=== PATIENT | male | born 1980 | race Caucasian/White ===

== ENCOUNTER → 2017-03-31 | Outpatient (CLI) | payer BC ==
--- NOTE | 2017-03-31 10:06 | US ---
EXAMINATION TYPE: US abdomen complete DATE OF EXAM: 03/31/2017 COMPARISON: NONE CLINICAL HISTORY: 36-year-old male R10.11 Right upper quadrant, epigastric, and RLQ pain. 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 Liver Length: 13.9 cm Gallbladder Wall: 0.2 cm CBD: 0.3 cm Spleen: 9.7 cm Right Kidney: 10.5 x 4.8 x 4.5 cm Left Kidney: 10.8 x 5.4 x 4.8 cm Pancreas: Tail obscured by overlying bowel gas Liver: Homogeneous echotexture without focal lesion. Gallbladder: wnl Evidence for sonographic Salter's sign: No CBD: wnl as visualized, distal portion obscured by bowel gas Spleen: wnl Right Kidney: No hydronephrosis. Left Kidney: No hydronephrosis. Upper IVC: limited visualization. Abd Aorta: wnl IMPRESSION: Allowing for some limitations due to bowel gas, unremarkable sonographic examination of the abdomen.
== END | disposition home or self-care (01) ==
LOC: RADUSWWP 08:11
PROVIDERS: ATTEND Family Medicine
DX: R10.11 Right upper quadrant pain (principal)
CPT/HCPCS: 76700

== ENCOUNTER → 2017-07-13 | Outpatient (CLI) | payer BC ==
--- NOTE | 2017-07-13 09:09 | US ---
EXAMINATION TYPE: US gallbladder DATE OF EXAM: 07/13/2017 COMPARISON: NONE CLINICAL HISTORY: R10.11 RUQ Abdominal Pain; RUQ pain after meals and with activity; herniated discs thoracic and lumbar level EXAM MEASUREMENTS: Liver Length: 10.1 cm Gallbladder Wall: 0.1 cm CBD: 0.3 cm Right Kidney: 11.0 x 5.8 x 5.6 cm Pancreas: wnl in its visualized portions, tail not well seen Liver: wnl Gallbladder: wnl Evidence for sonographic Salter's sign: No CBD: wnl Right Kidney: No hydronephrosis or masses seen There is no ascites. Cortical medullary differentiation maintained. IMPRESSION: No significant abnormalities evident
== END | disposition home or self-care (01) ==
LOC: RADUSWWP 07:47
DX: R10.11 Right upper quadrant pain (principal)
CPT/HCPCS: 76705

== ENCOUNTER → 2017-08-04 | Outpatient (CLI) | payer BC ==
--- NOTE | 2017-08-04 13:46 | NM ---
EXAMINATION TYPE: NM hepatobiliary w EF DATE OF EXAM: 08/04/2017 COMPARISON: Previous hepatobiliary scan dated 04/07/2017, ultrasound 07/13/2017 HISTORY: Right upper quadrant pain TECHNIQUE: After the intravenous administration of 5.3 mCi Tc 99m Mebrofenin hepatobiliary scintigrap hy is performed. Immediate images post injection. FINDINGS: There is satisfactory initial accumulation of tracer by the liver. The gallbladder is visualized wit hin 12 minutes. The small bowel activity is noted within 14 minutes. At one hour 8 ounces of oral e nsure plus is given to mimic CCK and gallbladder ejection fraction is calculated at 22 %, abnormal lo w. Therefore there is no scintigraphic evidence of cystic or common bile duct obstruction to suggest acute cholecystitis. IMPRESSION: Abnormal low gallbladder ejection fraction
== END | disposition home or self-care (01) ==
LOC: RADNMMAIN 07:08
DX: R93.2 Abnormal findings on diagnostic imaging of liver and biliary tract (principal)
CPT/HCPCS: 78226; A9537

== ENCOUNTER 2017-09-27 07:34 | Day surgery (SDC) | payer BC ==
[2017-09-25 10:38] VITALS: BMI 24.1
[~2017-09-27 07:34] MED LIST: DEXAMETHASONE SOD PHOSPHATE 10 MG/ML 1 ML VIAL IV ONE; HEPARIN SODIUM,PORCINE 5,000 UNIT/ML 1 ML VIAL SQ ONE; LACTATED RINGERS 1,000 ML IV SCH; LIDOCAINE 1% 20 ML VIAL (10MG/ML) FOR IV START INTRADERMA PRN; ONDANSETRON 4 MG/2 ML VIAL IVP ONE; ceFAZolin IN SWFI 2 GM/20 ML SYRINGE IVP ONE
[2017-09-27] MEDS ORDERED: LACTATED RINGERS 1,000 ML IV ONE ×2 (07:58→09:58)
[2017-09-27] MEDS ORDERED: SUCCINYLCHOLINE CHLORIDE 100 MG/5 ML SYR IV ONE (09:27)
[2017-09-27] MEDS ORDERED: KETOROLAC 30 MG/ML 1 ML VIAL ONE (09:27)
[2017-09-27] MEDS ORDERED: MIDAZOLAM 2 MG/2 ML VIAL ONE (09:27)
[2017-09-27] MEDS ORDERED: ROCURONIUM BROMIDE 10 MG/ML 10 ML VIAL IV ONE (09:27)
[2017-09-27] MEDS ORDERED: fentaNYL (PF) 50 MCG/ML 2 ML AMP ONE (09:27)
[2017-09-27] MEDS ORDERED: NEOSTIGMINE 1 MG/ML 10 ML VIAL ONE (09:27)
[2017-09-27] MEDS ORDERED: PROPOFOL 10 MG/ML 20 ML VIAL IV ONE (09:27)
[2017-09-27] MEDS ORDERED: GLYCOPYRROLATE 0.2 MG/ML 2 ML VIAL ONE (09:27)
[2017-09-27] MEDS ORDERED: LIDOCAINE 1% INJ 10MG/ML (20 ML MDV) ONE (09:27)
[2017-09-27] MEDS ORDERED: ROPIVACAINE 5 MG/ML 30 ML VIAL MISCELLANE ONE (09:45)
[2017-09-27] MEDS ORDERED: NALOXONE 0.4 MG/ML 1 ML VIAL IV PRN (10:22)
[2017-09-27] MEDS ORDERED: HYDROcodone/APAP 5-325MG 1 EACH TAB PO PRN (10:22)
--- NOTE | 2017-09-27 10:24 | P.OP ---
Date of Procedure: 09/27/17 Procedure(s) Performed: PREOPERATIVE DIAGNOSIS: Biliary dyskinesia POSTOPERATIVE DIAGNOSIS: Same PROCEDURE: Laparoscopic cholecystectomy SURGEON: Ly EBL: Minimal see anesthesia record ANESTHESIA: Gen. COMPLICATIONS: None OPERATIVE PROCEDURE: The patient was brought and placed on the operating room table in the supine position. The patient was placed under general anesthesia at that time. The abdomen was prepped and draped in the usual sterile fashion. A small vertical infraumbilical incision was made. The fascia was grasped with the Rosie forceps. The fascia was retracted anteriorly. The Veress needle was advanced into the peritoneal cavity. The saline drop test was normal. Insufflation took place up to 15 mmHg. A 5 mm optical trocar was advanced and the peritoneal cavity. 2 additional 5 mm trochars were placed in the right upper quadrant under direct visualization. A 10 mm trocar was advanced into the epigastric incision site. The gallbladder was retracted superiorly and laterally. The peritoneum overlying the infundibulum was bluntly dissected. The patient's cystic duct was visualized. The junction between the cystic duct common and hepatic duct was identified. The cystic duct was then divided after placement of 3 10 mm clips on the patient's side and one on the specimen side. The cystic artery was identified and clipped as well. A small vessel was seen along the gallbladder fossa and clipped as well. The gallbladder was then removed from the liver bed using electrocautery. The gallbladder was then removed from the epigastric trocar site with an Endo Catch bag. The gallbladder fossa was irrigated with saline. There was no evidence of any bleeding or biliary drainage seen. The trochars were then removed. The fascia at the 10 millimeter site was closed using a Candelario- Oliver 0 Vicryl stitch. The skin at all 4 sites was closed using a 4-0 Monocryl stitch. At the end of this procedure the sponge and needle counts were correct. DISPOSITION: Stable to the recovery room
[2017-09-27 10:27] VITALS: TEMP 97.8
[2017-09-27] MEDS ORDERED: HYDROmorphone 0.5 MG/0.5 ML SYRINGE IVP ONE ×2 (10:40→10:45)
[2017-09-27] MEDS: fentaNYL (PF) 50 MCG/ML 2 ML AMP IV PRN ×2 (10:51→10:57)
[2017-09-27] MEDS ORDERED: MEPERIDINE 50 MG/ML SYRINGE IVP ONE (11:05)
[2017-09-27] MEDS ORDERED: HYDROcodone/APAP 5-325MG 1 EACH TAB PO ONE (11:35)
[2017-09-27 11:37] VITALS: RESP 18
[2017-09-27 12:52] VITALS: BP 114/68; PULSE 68
== END 2017-09-27 12:59 | disposition home or self-care (01) ==
LOC: OR 07:34
PROVIDERS: ATTEND Surgery
DX: K81.1 Chronic cholecystitis (principal); K82.8 Other specified diseases of gallbladder; K21.9 Gastro-esophageal reflux disease without esophagitis; Z79.891 Long term (current) use of opiate analgesic; Z79.899 Other long term (current) drug therapy; Z88.1 Allergy status to other antibiotic agents; Z88.2 Allergy status to sulfonamides; Z88.8 Allergy status to other drugs, medicaments and biological substances
CPT/HCPCS: 88304; 47562; J2250; J1644; J1100; J2710; J2175; J2405; J2001; J3010; J1885; J2795; J0330; J2704; J1170; J0690

== ENCOUNTER → 2019-01-21 | Outpatient (CLI) | payer BC ==
--- NOTE | 2019-01-21 09:52 | XR ---
KUB HISTORY: Asymptomatic microscopic hematuria Frontal KUB submitted Surgical clips are present in the right upper quadrant. There is no evident bowel obstruction or pneu moperitoneum. No pathologic calcification is evident. Bone mineralization is normal. IMPRESSION: Postop changes.
== END | disposition home or self-care (01) ==
LOC: RADXRMAIN 09:21
PROVIDERS: ATTEND Physician Assistant
DX: R31.21 Asymptomatic microscopic hematuria (principal); Z98.890 Other specified postprocedural states
CPT/HCPCS: 74018